=== PATIENT | male | born 1985 | race African-American/Black ===

== ENCOUNTER 2019-04-16 19:16 | Emergency (ER) | payer OTHER ==
[2019-04-16] MEDS ORDERED: NORMAL SALINE 1000 ML 1,000 ML IV ONE (19:23)
[2019-04-16] MEDS ORDERED: DIPH/PERTUSS(ACELL)/TETANUS VAC/PF 0.5 ML SYR (>=10YO) IM ONE (19:28)
--- NOTE | 2019-04-16 19:32 | ER Document Report ---
ED General - General Stated Complaint: FALL, HEAD LACERATION Time Seen by Provider: 04/16/19 19:23 Primary Care Provider: URI GUZMAN MD [Primary Care Provider] - Follow up as needed TRAVEL OUTSIDE OF THE [place] IN LAST 30 DAYS: No - HPI Patient complains to provider of: Syncope Notes: Normally healthy 33-year-old male presents an episode of syncope at the gym while working out. Patient doing very strenuous cardio work-up. Films of getting lightheaded attempted to sit down to feel better I did not help him he ag again to walk to a couch at which time he members waking up on the floor. It was a witnessed syncopal event which struck his head on a table. Has a small laceration above his right eyebrow approximately 5 mm She denies chest pain, shortness of breath, nausea, vomiting, any other symptoms. Patient was found to be orthostatic by EMS. Given fluid resuscitation prehospital. For mildly improved. - Related Data Allergies/Adverse Reactions: No Known Allergies Allergy (Verified 08/28/16 00:14) Past Medical History - Social History Smoking Status: Unknown if Ever Smoked Family History: Reviewed & Not Pertinent Past Surgical History: Reports: Hx Orthopedic Surgery - left hip screw Review of Systems - Review of Systems Notes: REVIEW OF SYSTEMS: CONSTITUTIONAL: -fevers, -chills EENT: -eye pain, -difficulty swallowing, -nasal congestion CARDIOVASCULAR: -chest pain, -syncope. RESPIRATORY: -cough, -SOB GASTROINTESTINAL: -abdominal pain, -nausea, -vomiting, -diarrhea GENITOURINARY: -dysuria, -hematuria MUSCULOSKELETAL: -back pain, -neck pain SKIN: -rash or skin lesions. HEMATOLOGIC: -easy bruising or bleeding. LYMPHATIC: -swollen, enlarged glands. NEUROLOGICAL: -altered mental status or loss of consciousness, -headache, - neurologic symptoms PSYCHIATRIC: -anxiety, -depression. ALL OTHER SYSTEMS REVIEWED AND NEGATIVE. Physical Exam - Vital signs Vitals: Temp 98.8 F 04/16/19 19:30 - Notes Notes: PHYSICAL EXAMINATION: GENERAL: Well-appearing, well-nourished and in no acute distress. HEAD: Atraumatic, normocephalic. EYES: Pupils equal round and reactive to light, extraocular movements intact, sclera anicteric, conjunctiva are normal. ENT: nares patent, oropharynx clear without exudates. Moist mucous membranes. NECK: Normal range of motion, supple without lymphadenopathy LUNGS: Breath sounds clear to auscultation bilaterally and equal. No wheezes rales or rhonchi. HEART: Regular rate and rhythm without murmurs ABDOMEN: Soft, nontender, normoactive bowel sounds. No guarding, no rebound. No masses appreciated. EXTREMITIES: Normal range of motion, no pitting or edema. No cyanosis. NEUROLOGICAL: Cranial nerves grossly intact. Normal speech, normal gait. Normal sensory and motor exams. PSYCH: Normal mood, normal affect. SKIN: Warm, Dry, normal turgor, no rashes or lesions noted. Course - Re-evaluation Re-evalutation: 04/16/19 19:31 Well-appearing 33-year-old male presents here no complaints, no history of previous syncope. Patient has never had exertional in the past. 04/16/19 20:39 Well-appearing patient no acute distress presents with episode of syncope at the gym. Given fluid resuscitation in the emergency department feeling markedly improved. Patient no longer orthostatic. Patient no signs of anemia, negative troponin remainder of his electrolytes are all within normal limits. Patient has laceration closed successfully by myself. We will follow-up PCP given strict return precautions anything changes. - Vital Signs Vital signs: Temp Pulse Resp BP Pulse Ox 98.8 F 04/16/19 19:30 - Laboratory Result Diagrams: 04/16/19 19:48 04/16/19 19:48 Laboratory results interpreted by me: 04/16/19 04/16/19 19:48 19:48 WBC 13.2 H RDW 14.4 H Absolute Neutrophils 8.5 H Carbon Dioxide 19 L BUN 21 H - EKG Interpretation by Nd EKG shows normal: Sinus rhythm Rate: Normal Rhythm: NSR Additional EKG results interpreted by nv: 04/16/19 19:40 Normal sinus rhythm, 85 bpm, no ST elevations or depressions, no pathologic T wave inversions, no unusual Procedures - Laceration/Wound Repair Right Face Time completed: 08:38 Wound length (cm): 0.5 Wound's Depth, Shape: Superficial - The laceration over right eyebrow. Wound explored: Clean Wound Repaired With: Dermabond Discharge - Discharge Clinical Impression: Laceration Syncope Qualifiers: Syncope type: vasovagal syncope Qualified Code(s): R55 - Syncope and collapse Condition: Stable Disposition: HOME, SELF-CARE Instructions: Laceration Care ([facility]) Additional Instructions: Follow-up with your PCP Referrals: URI GUZMAN MD [Primary Care Provider] - Follow up as needed
[2019-04-16 20:10] LABS: ABSOLUTE EOSINOPHILS # (AUTO) 0.1 10^3/uL (0.0-0.6); ABSOLUTE LYMPHOCYTES (AUTO) 3.4 10^3/uL (0.5-4.7); ABSOLUTE MONOCYTES (AUTO) 1.1 10^3/uL (0.1-1.4); ABSOLUTE NEUT (AUTO) 8.5 10^3/uL (1.7-8.2); BASOPHILS % (AUTO) 0.4 % (0-2); HEMATOCRIT 44.6 % (37.9-51.0); LYMPHOCYTES % (AUTO) 25.9 % (13-45); MEAN CORPUSCULAR HEMOGLOBIN 27.7 pg (27.0-33.4); MEAN CORPUSCULAR HGB CONC 33.7 g/dL (32.0-36.0); MEAN CORPUSCULAR VOLUME 82 fl (80-97); MONOCYTES % (AUTO) 8.3 % (3-13); PLATELET COUNT 267 10^3/uL (150-450); RED BLOOD COUNT 5.42 10^6/uL (4.35-5.55); RED CELL DISTRIBUTION WIDTH 14.4 % (11.5-14.0); SEGMENTED NEUTROPHILS % (AUTO) 64.4 % (42-78); TOTAL CELLS COUNTED % (AUTO) 100 %; WHITE BLOOD COUNT 13.2 10^3/uL (4.0-10.5)
--- NOTE | 2019-04-16 20:15 | RADIOLOGY REPORT (SQ) ---
XR CHEST 2 VIEWS EXAM DATE: 04/16/2019 7:23 PM CDT HISTORY: SOB. COMPARISON: None. FINDINGS: The heart size is within normal limits. No consolidation, pleural effusion, or pneumothorax is seen. The bony thorax is intact. IMPRESSION: No evidence of acute cardiopulmonary disease.
[2019-04-16 20:18] LABS: ANION GAP 12 (5-19); BLOOD UREA NITROGEN 21 mg/dL (7-20); CALCIUM 9.3 mg/dL (8.4-10.2); CARBON DIOXIDE 19 mmol/L (22-30); CHLORIDE 107 mmol/L (98-107); GLUCOSE 88 mg/dL (75-110)
[2019-04-16 21:12] VITALS: BP 138/80
--- NOTE | 2019-04-17 07:40 | EKG REPORT ---
SEVERITY:- BORDERLINE ECG - SINUS RHYTHM NONSPECIFIC INFERIOR ST-T CHANGES : Confirmed by: Mirza Good MD 17-Apr-2019 07:39:40
== END 2019-04-16 21:20 | disposition home or self-care (01) ==
LOC: ER 19:16
DX: S01.81XA Laceration without foreign body of other part of head, initial encounter (principal); W19.XXXA Unspecified fall, initial encounter; W22.03XA Walked into furniture, initial encounter; Y93.A9 Activity, other involving cardiorespiratory exercise; Y92.39 Other specified sports and athletic area as the place of occurrence of the external cause; R55 Syncope and collapse
CPT/HCPCS: 93005; 99284; 96360; 90471; 36415; 85025; 80048; 84484; 71046; 90715; 93010; 12011; J7030

== ENCOUNTER 2019-11-25 03:06 | Emergency (ER) | payer OTHER ==
[2019-11-25] MEDS ORDERED: ONDANSETRON 4 MG TAB.RAPDIS PO ONE (03:34)
--- NOTE | 2019-11-25 03:36 | ER Document Report ---
ED General - General Chief Complaint: Lower Abdominal Pain Stated Complaint: ABDOMINAL PAIN Time Seen by Provider: 11/25/19 03:28 Primary Care Provider: URI GUZMAN MD [Primary Care Provider] - Follow up as needed TRAVEL OUTSIDE OF THE [place] IN LAST 30 DAYS: No - HPI Notes: Patient is a 34-year-old male with history of diverticulosis and diverticulitis who presents complaining of mid lower abdominal pain that began over the past 24 hours. Patient states that the pain does not radiate and is constant. He has noticed some increased urinary frequency and voiding small amounts recently. Patient states that he has been somewhat on the constipated side starting last week, but has been having regular bowel movements with the aid of a stool softener. Patient states that his stool is fibrous. He does have some soreness on occasion near his rectum with bowel movements, but nothing right now. He has not noticed any blood in his urine or stool. Denies drug allergies. He does have some nausea without vomiting. Denies any headache, fever, neck pain, URI, sore throat, chest pain, palpitations, syncope, cough, shortness of breath, wheeze, dyspnea, vomiting/diarrhea, urinary retention, dysuria, hematuria, back pain, flank pain, loss of control of bowel or bladder, numbness/tingling, saddle anesthesia, muscle paralysis/weakness, or rash. - Related Data Allergies/Adverse Reactions: No Known Allergies Allergy (Verified 08/28/16 00:14) Past Medical History - Social History Smoking Status: Never Smoker Family History: Reviewed & Not Pertinent Patient has suicidal ideation: No Patient has homicidal ideation: No Renal/ Medical History: Denies: Hx Peritoneal Dialysis Past Surgical History: Reports: Hx Orthopedic Surgery - left hip screw Review of Systems - Review of Systems -: Yes All other systems reviewed and negative Physical Exam - Vital signs Vitals: Temp Pulse Resp BP Pulse Ox 98.6 F 85 20 133/91 H 97 11/25/19 03:10 11/25/19 03:10 11/25/19 03:10 11/25/19 03:10 11/25/19 03:10 - Notes Notes: PHYSICAL EXAMINATION: GENERAL: Well-appearing, well-nourished and in no acute distress. HEAD: Atraumatic, normocephalic. EYES: Pupils equal round and reactive to light, extraocular movements intact, sclera anicteric, conjunctiva are normal. ENT: Nares patent and without discharge. oropharynx clear without exudates. No tonsilar hypertrophy or erythema. Moist mucous membranes. NECK: Normal range of motion, supple without lymphadenopathy LUNGS: Breath sounds clear to auscultation bilaterally and equal. No wheezes rales or rhonchi. HEART: Regular rate and rhythm without murmurs, rubs, gallops. ABDOMEN: Soft, nondistended abdomen. No guarding, no rebound. Normal bowel sounds present. No CVA tenderness bilaterally. + tenderness lower mid abd. No tenderness at [place]. Mcnally neg. Musculoskeletal: FROM to passive/active. Strength 5+/5. Extremities: No cyanosis, clubbing, or edema b/l. Peripheral pulses 2+. Capillary refill less than 3 seconds. NEUROLOGICAL: Normal speech, normal gait. PSYCH: Normal mood, normal affect. SKIN: Warm, Dry, normal turgor, no rashes or lesions noted. Course - Re-evaluation Re-evalutation: 11/25/19 04:39 Patient is an afebrile, well-hydrated, 34-year-old male who presents with diverticulitis. Vitals are acceptable without significant tachycardia, tachypnea, or hypoxia. PE is otherwise unremarkable. Patient is nontoxic- appearing and is tolerating p.o. without difficulty. See labs and imaging. No further work-up warranted. Low suspicion/risk for acute appendicitis, bowel obstruction, acute cholecystitis, perforated diverticulitis, incarcerated hernia, pancreatitis, perforated ulcer, peritonitis, sepsis, testicular torsion, or other systemic emergent condition at this time. Patient is aware that his condition can change from initial presentation and he needs to monitor symptoms closely and seek medical attention if any acute changes. I will send him home with a prescription for Augmentin. Conservative measures otherwise for symptoms. Recheck with PCM in 2-3 days. 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 Return to the ED with any worsening/concerning symptoms otherwise as reviewed in discharge. Patient is in agreement. - Vital Signs Vital signs: Temp Pulse Resp BP Pulse Ox 98.6 F 85 20 133/91 H 97 11/25/19 03:10 11/25/19 03:10 11/25/19 03:10 11/25/19 03:10 03/16/20 03:10 - Laboratory Result Diagrams: 11/25/19 03:38 11/25/19 03:38 Laboratory results interpreted by me: 11/25/19 11/25/19 11/25/19 03:38 03:38 03:58 WBC 14.4 H RBC 5.92 H RDW 14.4 H Absolute Neuts (auto) 9.2 H Lipase 391.4 H Urine Blood MODERATE H Discharge - Discharge Clinical Impression: Diverticulitis of intestine without perforation or abscess without bleeding Qualifiers: Diverticulitis site: large intestine Qualified Code(s): K57.32 - Diverticulitis of large intestine without perforation or abscess without bleeding Condition: Stable Disposition: HOME, SELF-CARE Instructions: Diverticulitis ([facility]) Additional Instructions: Maintain adequate fluid and food intake Increase fiber/water in diet Zofran as needed tylenol if needed Monitor for any worsening symptoms Make sure you are staying hydrated enough to urinate and have normal BM's Recheck with your PCM in 2-3 days Consider consult with Gastroenterology for ongoing/worsening symptoms Return to the ED with any worsening symptoms and/or development of fever, headache, chest pain, palpitations, syncope, shortness of breath, trouble breathing, abdominal pain, n/v/d, blood in stool/urine, weakness, or other worsening symptoms that are concerning to you. Prescriptions: Amoxicillin/Potassium Clav [Augmentin 875-125 Tablet] 1 tab PO TID #30 tab Forms: Elevated Blood Pressure, Return to Work Referrals: URI GUZMAN MD [Primary Care Provider] - Follow up as needed ISABELLA OLIVAS MD [ACTIVE STAFF] - Follow up as needed MAYELIN FELDER MD [ACTIVE STAFF] - Follow up as needed
[2019-11-25 03:51] LABS: ABSOLUTE EOSINOPHILS # (AUTO) 0.2 10^3/uL (0.0-0.6); ABSOLUTE LYMPHOCYTES (AUTO) 3.6 10^3/uL (0.5-4.7); ABSOLUTE MONOCYTES (AUTO) 1.3 10^3/uL (0.1-1.4); ABSOLUTE NEUT (AUTO) 9.2 10^3/uL (1.7-8.2); BASOPHILS % (AUTO) 0.2 % (0-2); EOSINOPHILS % (AUTO) 1.7 % (0-6); HEMATOCRIT 49.8 % (37.9-51.0); HEMOGLOBIN 16.4 g/dL (13.5-17.0); LYMPHOCYTES % (AUTO) 25.4 % (13-45); MEAN CORPUSCULAR HEMOGLOBIN 27.7 pg (27.0-33.4); MEAN CORPUSCULAR VOLUME 84 fl (80-97); MONOCYTES % (AUTO) 8.9 % (3-13); PLATELET COUNT 247 10^3/uL (150-450); RED BLOOD COUNT 5.92 10^6/uL (4.35-5.55); RED CELL DISTRIBUTION WIDTH 14.4 % (11.5-14.0); SEGMENTED NEUTROPHILS % (AUTO) 63.8 % (42-78); TOTAL CELLS COUNTED % (AUTO) 100 %; WHITE BLOOD COUNT 14.4 10^3/uL (4.0-10.5)
[2019-11-25 04:08] LABS: ALBUMIN 4.6 g/dL (3.5-5.0); ALKALINE PHOSPHATASE 70 U/L (38-126); ANION GAP 10 (5-19); ASPARTATE AMINO TRANSFERASE 25 U/L (17-59); BILIRUBIN,DIRECT 0.2 mg/dL (0.0-0.4); BILIRUBIN,TOTAL 0.5 mg/dL (0.2-1.3); BLOOD UREA NITROGEN 12 mg/dL (7-20); CALCIUM 9.6 mg/dL (8.4-10.2); CARBON DIOXIDE 27 mmol/L (22-30); CHLORIDE 101 mmol/L (98-107); GLUCOSE 104 mg/dL (75-110); POTASSIUM 4.4 mmol/L (3.6-5.0)
[2019-11-25 04:18] LABS: APPEARANCE,URINE CLEAR; BILIRUBIN,URINE NEGATIVE (NEGATIVE); COLOR,URINE YELLOW; GLUCOSE, URINE NEGATIVE (NEGATIVE); KETONES,URINE NEGATIVE (NEGATIVE); PROTEIN,URINE NEGATIVE (NEGATIVE); URINE SPECIFIC GRAVITY 1.016; UROBILINOGEN,URINE NEGATIVE mg/dL (<2.0)
--- NOTE | 2019-11-25 04:33 | RADIOLOGY REPORT (SQ) ---
CLINICAL HISTORY: lower abdominal pain, h/o diverticulitis COMPARISON: 04/07/2014. TECHNIQUE: CT ABDOMEN PELVIS WITH IV CONTRAST on 11/25/2019 3:33 AM CDT This exam was performed according to our departmental dose-optimization program, which includes automated exposure control, adjustment of the mA and/or kV according to patient size and/or use of iterative reconstruction technique. FINDINGS: Lower lungs are clear. Abdomen: The liver is normal in appearance. There is no biliary dilatation. Gallbladder is normal in appearance. The pancreas and spleen are normal in appearance. The adrenal glands and kidneys are unremarkable. Abdominal aorta is normal in course and caliber without aneurysm. There is no free air. There is no retroperitoneal adenopathy. Pelvis: There is severe nearly diffuse colonic diverticulosis. There is thickening of the midsigmoid colon with surrounding inflammation. Urinary bladder is unremarkable. There is no free fluid. Appendix is normal. Skeleton: There are no acute osseous findings. No suspicious bony lesions. IMPRESSION: Mid sigmoid colonic acute diverticulitis.
[2019-11-25] MEDS ORDERED: AMOXICILLIN TR/POT CLAVULANATE 875-125 MG TAB PO ONE (04:42)
[2019-11-25] MEDS ORDERED: HYDROCODONE/ACETAMINOPHEN 5-325 MG (6 TAB/ER DISP) PO PRN (04:44)
[2019-11-25 05:02] VITALS: BP 125/85
== END 2019-11-25 05:01 | disposition home or self-care (01) ==
LOC: ER 03:06
DX: K57.32 Diverticulitis of large intestine without perforation or abscess without bleeding (principal); R10.30 Lower abdominal pain, unspecified; R35.0 Frequency of micturition; R33.9 Retention of urine, unspecified; K62.89 Other specified diseases of anus and rectum; R11.0 Nausea
CPT/HCPCS: 99284; 36415; 83690; 85025; 80053; 81001; 74177; J3490

== ENCOUNTER 2020-07-02 10:35 | Emergency (ER) | payer OTHER ==
--- NOTE | 2020-07-02 10:57 | ER Document Report ---
ED Medical Screen (RME) - General Chief Complaint: Abdominal Pain Stated Complaint: ABDOMINAL PAIN Time Seen by Provider: 07/02/20 10:40 Primary Care Provider: URI GUZMAN MD [Primary Care Provider] - Follow up as needed Mode of Arrival: Ambulatory Information source: Patient Notes: 34-year-old male patient with history of diverticulitis presenting to the [facility] department chief complaint of right lower quadrant abdominal pain. Patient reports pain started approximately 4 days ago. He states it has been persistent since it started and has gradually gotten worse. He states overnight it was very severe and now feels slightly better. He denies any fevers, chills, nausea, vomiting or diarrhea. He reports the pain is much worse with movement. He denies any history of any abdominal surgeries. No acute distress noted. Mild tenderness noted in the right lower quadrant, no obvious rebound tenderness although exam is limited due to seated position in triage. Patient instructed to be n.p.o. until all labs are resulted and disposition is made. I have greeted and performed a rapid initial assessment of this patient. A comprehensive ED assessment and evaluation of the patient, analysis of test results and completion of the medical decision making process will be conducted by additional ED providers. I have specifically instructed the patient or family members with the patient to immediately return to any nursing staff should anything change in the patient's condition or with their chief complaint. TRAVEL OUTSIDE OF THE [place] IN LAST 30 DAYS: No - Related Data Allergies/Adverse Reactions: No Known Allergies Allergy (Verified 07/02/20 10:50) Past Medical History - Social History Chew tobacco use (# tins/day): No Drug Abuse: None Renal/ Medical History: Denies: Hx Peritoneal Dialysis Past Surgical History: Reports: Hx Orthopedic Surgery - left hip screw Physical Exam - Vital signs Vitals: Temp Pulse Resp BP Pulse Ox 98.3 F 63 18 145/90 H 99 07/02/20 10:49 07/02/20 10:49 07/02/20 10:49 07/02/20 10:49 07/02/20 10:49 Course - Vital Signs Vital signs: Temp Pulse Resp BP Pulse Ox 98.3 F 63 18 145/90 H 99 07/02/20 10:49 07/02/20 10:49 07/02/20 10:49 07/02/20 10:49 07/02/20 10:49 Doctor's Discharge - Discharge Referrals: URI GUZMAN MD [Primary Care Provider] - Follow up as needed
[2020-07-02 11:30] LABS: ABSOLUTE EOSINOPHILS # (AUTO) 0.2 10^3/uL (0.0-0.6); ABSOLUTE LYMPHOCYTES (AUTO) 3.3 10^3/uL (0.5-4.7); ABSOLUTE MONOCYTES (AUTO) 0.9 10^3/uL (0.1-1.4); ABSOLUTE NEUT (AUTO) 5.5 10^3/uL (1.7-8.2); APPEARANCE,URINE CLEAR; BASOPHILS % (AUTO) 0.5 % (0-2); BILIRUBIN,URINE NEGATIVE (NEGATIVE); COLOR,URINE YELLOW; EOSINOPHILS % (AUTO) 1.6 % (0-6); GLUCOSE, URINE NEGATIVE (NEGATIVE); HEMATOCRIT 49.1 % (37.9-51.0); HEMOGLOBIN 16.6 g/dL (13.5-17.0); KETONES,URINE NEGATIVE (NEGATIVE); LEUKOCYTE ESTERASE,URINE NEGATIVE (NEGATIVE); LYMPHOCYTES % (AUTO) 33.5 % (13-45); MEAN CORPUSCULAR HEMOGLOBIN 27.2 pg (27.0-33.4); MEAN CORPUSCULAR HGB CONC 33.9 g/dL (32.0-36.0); MEAN CORPUSCULAR VOLUME 80 fl (80-97); MONOCYTES % (AUTO) 9.1 % (3-13); NITRITE,URINE NEGATIVE (NEGATIVE); PLATELET COUNT 271 10^3/uL (150-450); PROTEIN,URINE NEGATIVE (NEGATIVE); RED BLOOD COUNT 6.11 10^6/uL (4.35-5.55); RED CELL DISTRIBUTION WIDTH 15.3 % (11.5-14.0); SEGMENTED NEUTROPHILS % (AUTO) 55.3 % (42-78); TOTAL CELLS COUNTED % (AUTO) 100 %; URINE SPECIFIC GRAVITY 1.025; UROBILINOGEN,URINE NEGATIVE mg/dL (<2.0); WHITE BLOOD COUNT 9.9 10^3/uL (4.0-10.5)
[2020-07-02 11:46] LABS: ALBUMIN 4.7 g/dL (3.5-5.0); ALKALINE PHOSPHATASE 67 U/L (38-126); ANION GAP 10 (5-19); ASPARTATE AMINO TRANSFERASE 27 U/L (17-59); BILIRUBIN,DIRECT 0.3 mg/dL (0.0-0.4); BILIRUBIN,TOTAL 0.6 mg/dL (0.2-1.3); BLOOD UREA NITROGEN 15 mg/dL (7-20); CALCIUM 9.7 mg/dL (8.4-10.2); CARBON DIOXIDE 24 mmol/L (22-30); CHLORIDE 103 mmol/L (98-107); GLUCOSE 93 mg/dL (75-110); POTASSIUM 4.5 mmol/L (3.6-5.0); TOTAL PROTEIN 7.9 g/dL (6.3-8.2)
[2020-07-02] MEDS ORDERED: KETOROLAC TROMETHAMINE INJ/PF 30 MG/1 ML SDV IV ONE (12:00)
--- NOTE | 2020-07-02 12:00 | ER Document Report ---
ED GI/ - General Chief Complaint: Abdominal Pain Stated Complaint: ABDOMINAL PAIN Time Seen by Provider: 07/02/20 10:40 Primary Care Provider: URI GUZMAN MD [Primary Care Provider] - Follow up as needed Mode of Arrival: Ambulatory Information source: Patient Notes: 34-year-old male past medical history significant for diverticulitis presents to the emergency room complaining of generalized sharp stabbing abdominal pain for the past 2 days. He denies any nausea, vomiting, no fevers, no urinary symptoms. No diarrhea. States he traveled over the past week and has not been eating his normal diet. Thinks he may have aggravated his history of diverti culitis. He has not taken any medications for his symptoms. He drove himself to the emergency room. He denies any previous abdominal surgeries. He denies any urinary symptoms. TRAVEL OUTSIDE OF THE [place] IN LAST 30 DAYS: No - Related Data Allergies/Adverse Reactions: No Known Allergies Allergy (Verified 07/02/20 10:50) Past Medical History - General Information source: Patient - Social History Smoking Status: Never Smoker Chew tobacco use (# tins/day): No Frequency of alcohol use: Rare Drug Abuse: None Family History: Reviewed & Not Pertinent Patient has homicidal ideation: No Renal/ Medical History: Denies: Hx Peritoneal Dialysis GI Medical History: Reports: Hx Diverticulitis Past Surgical History: Reports: Hx Orthopedic Surgery - left hip screw Review of Systems - Review of Systems Constitutional: No symptoms reported EENT: No symptoms reported Cardiovascular: No symptoms reported Respiratory: No symptoms reported Gastrointestinal: Abdominal pain. denies: Diarrhea, Nausea, Vomiting, Constipation Musculoskeletal: No symptoms reported Skin: No symptoms reported Neurological/Psychological: No symptoms reported -: Yes All other systems reviewed and negative Physical Exam - Vital signs Vitals: Temp Pulse Resp BP Pulse Ox 98.3 F 63 18 145/90 H 99 07/02/20 10:49 07/02/20 10:49 07/02/20 10:49 07/02/20 10:49 07/02/20 10:49 - Notes Notes: GENERAL: Mild acute distress, non-toxic appearance. HEAD: Normal with no signs of head trauma. EYES: PERRLA, EOMI, conjunctiva normal, no discharge. EARS: Hearing grossly intact. NOSE: Normal. THROAT: Oropharynx is normal. NECK: Normal range of motion, no tenderness, supple, no lymphadenopathy, No adenopathy, no JVD. CHEST: Clear breath sounds bilaterally. No wheezes, rales, or rhonchi. CARDIAC: Regular rate and rhythm. S1 and S2, without murmurs, gallops, or rubs. VASCULAR: No Edema. Peripheral pulses normal and equal in all extremities. ABDOMEN: Normal and soft with mild generalized tenderness on palpation, no masses or pulsatile masses. No organomegaly. Positive bowel sounds x4. No CVA tenderness noted bilaterally. GASTROINTESTINAL: Bowel sounds normal LYMPATHTIC: No lymphadenopathy noted. MUSCULOSKELETAL: Good range of motion of all major joints. Extremities without clubbing, cyanosis or edema. NEUROLOGICAL: Alert and oriented x 3. No focal sensory or strength deficits. Speech normal. Follows commands appropriately. PSYCHIATRIC: Normal Affect, judgement and mood. SKIN: Normal appearance with no rashes or lesions. Course - Re-evaluation Re-evalutation: 07/02/20 11:59 Reviewed lab results with patient. Patient states he has a history of diverticulitis which is what his concern was with coming to the ER. Denies eating any recent nuts or seeds however states he was traveling over the weekend and was eating out frequently. Will get CT abdomen pelvis with IV contrast and reevaluate. 07/02/20 15:14 Patient is resting comfortably he is pain-free on exam. All test results were reviewed with the patient. Discussed CT findings of diverticulosis not diverticulitis. He was counseled on diet modifications. Outpatient follow-up with his primary care physician if not improving in 2 to 3 days. Patient was given strict return to the emergency room guidelines. Return for any new or worsening symptoms. All questions were answered. Patient verbalized understanding and agrees with plan of care. 07/02/20 15:44 - Vital Signs Vital signs: Temp Pulse Resp BP Pulse Ox 98.3 F 67 18 140/88 H 100 07/02/20 10:49 07/02/20 15:40 07/02/20 15:40 07/02/20 15:40 07/02/20 15:40 - Laboratory Result Diagrams: 07/02/20 11:14 07/02/20 11:14 Laboratory results interpreted by me: 07/02/20 07/02/20 11:14 11:14 RBC 6.11 H RDW 15.3 H Urine Blood MODERATE H - Diagnostic Test Radiology reviewed: Reports reviewed Discharge - Discharge Clinical Impression: Diverticulosis Condition: Stable Disposition: HOME, SELF-CARE Instructions: Abdominal Pain ([facility]) Additional Instructions: Your testing is consistent with diverticulosis. Diet modifications as discussed. Follow-up with your primary care physician if not improving in 2 to 3 days. Return to the emergency room for any new or worsening symptoms. Forms: Return to Work Referrals: URI GUZMAN MD [Primary Care Provider] - Follow up as needed
--- NOTE | 2020-07-02 14:49 | RADIOLOGY REPORT (SQ) ---
EXAM DESCRIPTION: CT ABD/PELVIS WITH IV ONLY IMAGES COMPLETED DATE/TIME: 07/02/2020 2:15 pm REASON FOR STUDY: abdominal pain COMPARISON: None. TECHNIQUE: CT scan of the abdomen and pelvis performed using helical scanning technique with dynamic intravenous contrast injection. No oral contrast. Images reviewed with lung, soft tissue, and bone windows. Reconstructed coronal and sagittal MPR images reviewed. Delayed images for evaluation of the urinary system also acquired. All images stored on PACS. All CT scanners at this facility use dose modulation, iterative reconstruction, and/or weight based d osing when appropriate to reduce radiation dose to as low as reasonably achievable (ALARA). [facility]: Dose Right [facility]: CareDose [facility]: Dose Right [facility]: Teradose 4D [facility]: Definiens CONTRAST TYPE AND DOSE: contrast/concentration: Isovue 350.00 mmol/ml; Total Contrast Delivered: 100 .0 ml; Total Saline Delivered: 71.0 ml RENAL FUNCTION: BUN 15 creatinine 0.84 RADIATION DOSE: CT Rad equipment meets quality standard of care and radiation dose reduction techniq ues were employed. CTDIvol: 17.4 - 20.4 mGy. DLP: 2202 mGy-cm.. LIMITATIONS: None. FINDINGS: LOWER CHEST: No significant findings. No nodules or infiltrates. LIVER: Normal size. No masses. No dilated ducts. SPLEEN: Normal size. No focal lesions. PANCREAS: No masses. No significant calcifications. No adjacent inflammation or peripancreatic fluid collections. Pancreatic duct not dilated. GALLBLADDER: No identified stones by CT criteria. No inflammatory changes to suggest cholecystitis. ADRENAL GLANDS: No significant masses or asymmetry. RIGHT KIDNEY AND URETER: No solid masses. No significant calcifications. No hydronephrosis or hyd roureter. LEFT KIDNEY AND URETER: No solid masses. No significant calcifications. No hydronephrosis or hydr oureter. AORTA AND VESSELS: No aneurysm. No dissection. Renal arteries, SMA, celiac without stenosis. RETROPERITONEUM: No retroperitoneal adenopathy, hemorrhage or masses. BOWEL AND PERITONEAL CAVITY: Diverticula are present throughout the colon. No acute inflammatory jonathan nges are seen at this time. No obvious bowel mass. APPENDIX: Normal. PELVIS: No mass. No free fluid. Normal bladder. ABDOMINAL WALL: No masses. No hernias. BONES: No significant or acute findings. OTHER: No other significant finding. IMPRESSION: The appendix is normal. There is extensive diverticulosis coli. No acute finding in th e abdomen or pelvis. TECHNICAL DOCUMENTATION: JOB ID: [id number] Quality ID # [id number]: Final reports with documentation of one or more dose reduction techniques (e.g., Au tomated exposure control, adjustment of the mA and/or kV according to patient size, use of iterative reconstruction technique) 2010 [employer]- All Rights Reserved Reading location - IP/workstation name: [email or web address]
[2020-07-02 15:41] VITALS: BP 140/88
== END 2020-07-02 15:40 | disposition home or self-care (01) ==
LOC: ER 10:35
DX: K57.30 Diverticulosis of large intestine without perforation or abscess without bleeding (principal); R10.84 Generalized abdominal pain; R10.817 Generalized abdominal tenderness; Z87.19 Personal history of other diseases of the digestive system
CPT/HCPCS: 99285; 96374; 36415; 83690; 85025; 80053; 81001; 74177; J1885

== ENCOUNTER 2020-07-11 22:07 | Inpatient (IN) | payer OTHER ==
[2020-07-11] MEDS ORDERED: RINGERS SOLUTION,LACTATED 1,000 ML IV ONE (22:28)
--- NOTE | 2020-07-11 22:33 | ER Document Report ---
ED Medical Screen (RME) - General Chief Complaint: Bloody Stools Stated Complaint: NAUSEA,VOMITING Time Seen by Provider: 07/11/20 22:26 Primary Care Provider: URI GUZMAN MD [Primary Care Provider] - Follow up as needed Mode of Arrival: Medic Information source: Patient Notes: 34-year-old male presented to ED for complaint of abdominal pain Dr. Puckett lc beltran since . He states that he called his doctor and talk to them yesterday they said they were going to set him up with a new doctor schedule him for CT some blood work and set him up with a pot builder. He states they were supposed to call him back but they have not called him back with this yet. He states that today he has had between 13 and 15 stools now they are more dark red stools instead of tarry stools. He states he has had dark diverticulitis multiple times the last time was in November of this year. He states that did not start him on antibiotics when he told him that he was having the low abdominal pain with tarry black stools and he has a history of multiple diverticulitis. According to EMS his blood pressure was 65 systolic when they picked him up they did start him on a liter of lactated Ringer's. He is still getting that bad. His blood pressure right now is 99/65. I have ordered type and screen blood work urine and stool and CT IV contrast of abdomen pelvis. I have greeted and performed a rapid initial assessment of this patient. A comprehensive ED assessment and evaluation of the patient, analysis of test results and completion of medical decision making process will be conducted by an additional ED providers. TRAVEL OUTSIDE OF THE [place] IN LAST 30 DAYS: No - Related Data Allergies/Adverse Reactions: No Known Allergies Allergy (Verified 07/02/20 10:50) Past Medical History Renal/ Medical History: Denies: Hx Peritoneal Dialysis GI Medical History: Reports: Hx Diverticulitis Past Surgical History: Reports: Hx Orthopedic Surgery - left hip screw Physical Exam - Vital signs Vitals: Temp 98.0 F 07/11/20 22:11 Course - Vital Signs Vital signs: Temp Pulse Resp BP Pulse Ox 98.0 F 07/11/20 22:11 Doctor's Discharge - Discharge Referrals: URI GUZMAN MD [Primary Care Provider] - Follow up as needed
[2020-07-11 22:46] LABS: ABSOLUTE EOSINOPHILS # (AUTO) 0.2 10^3/uL (0.0-0.6); ABSOLUTE LYMPHOCYTES (AUTO) 4.8 10^3/uL (0.5-4.7); ABSOLUTE MONOCYTES (AUTO) 0.8 10^3/uL (0.1-1.4); ABSOLUTE NEUT (AUTO) 4.9 10^3/uL (1.7-8.2); BASOPHILS % (AUTO) 0.2 % (0-2); EOSINOPHILS % (AUTO) 1.7 % (0-6); HEMATOCRIT 33.7 % (37.9-51.0); HEMOGLOBIN 11.4 g/dL (13.5-17.0); LYMPHOCYTES % (AUTO) 44.4 % (13-45); MEAN CORPUSCULAR HEMOGLOBIN 27.4 pg (27.0-33.4); MEAN CORPUSCULAR HGB CONC 33.8 g/dL (32.0-36.0); MEAN CORPUSCULAR VOLUME 81 fl (80-97); MONOCYTES % (AUTO) 7.9 % (3-13); PLATELET COUNT 249 10^3/uL (150-450); RED BLOOD COUNT 4.15 10^6/uL (4.35-5.55); RED CELL DISTRIBUTION WIDTH 14.5 % (11.5-14.0); SEGMENTED NEUTROPHILS % (AUTO) 45.8 % (42-78); TOTAL CELLS COUNTED % (AUTO) 100 %; WHITE BLOOD COUNT 10.7 10^3/uL (4.0-10.5)
[2020-07-11 22:53] LABS: INTERNATIONAL RATION (INR) 0.99; PROTHROMBIN TIME 13.3 SEC (11.4-15.4)
[2020-07-11 23:02] LABS: ALBUMIN 3.5 g/dL (3.5-5.0); ALKALINE PHOSPHATASE 47 U/L (38-126); ANION GAP 10 (5-19); ASPARTATE AMINO TRANSFERASE 19 U/L (17-59); BILIRUBIN,DIRECT 0.1 mg/dL (0.0-0.4); BILIRUBIN,TOTAL 0.2 mg/dL (0.2-1.3); BLOOD UREA NITROGEN 22 mg/dL (7-20); CALCIUM 8.8 mg/dL (8.4-10.2); CARBON DIOXIDE 23 mmol/L (22-30); CHLORIDE 107 mmol/L (98-107); GLUCOSE 113 mg/dL (75-110); POTASSIUM 3.9 mmol/L (3.6-5.0); TOTAL PROTEIN 5.9 g/dL (6.3-8.2)
--- NOTE | 2020-07-11 23:34 | ER Document Report ---
ED General - General Chief Complaint: Bloody Stools Stated Complaint: NAUSEA,VOMITING Time Seen by Provider: 07/11/20 22:26 Primary Care Provider: URI GUZMAN MD [NO LOCAL MD] - Follow up as needed Mode of Arrival: Medic TRAVEL OUTSIDE OF THE [place] IN LAST 30 DAYS: No - HPI Context: This is a 34-year-old male with a history of diverticulosis and diverticulitis per patient. Patient presents with a chief complaint of bloody stools and abdominal pain. Patient states that the abdominal pain is been present for approximately a week and a half. Patient states he is had some dark blood per rectum for the past 2 days. Patient describes the stools as dark red and diarrheal as opposed to being tarry. Patient states that he has noticed the pa in in his lower abdomen in the midline and it was initially on the right side for a few days but now has moved to the left side. Patient states that when he was using the toilet earlier tonight he passed more bloody diarrheal stool and had a moment where he blacked out. Patient states he did not fall and regain consciousness and was able to tell his spouse to get in touch with EMS as he walked from the upstairs bathroom downstairs. Patient states that just as he got downstairs he blacked out but denies any type of head trauma. Patient denies neck pain, chest pain back pain. Patient rates the for your pain: Take ibuprofen 600 mg and acetaminophen 1000 mg every 6 hours together as needed for pain. If this does not control your pain you may take 15 mg of oral morphine every 4 hours as needed. Please be very careful about using the oral morphine and only use this for severe pain. And is a 3 out of 5 and describes it as sharp. Patient states he has had approximately 15 stools over the past 2 days that have been dark red. Patient denies fever and chills. Per EMS, patient's initial blood pressure was 65 systolic and patient was given a liter of lactated Ringer's which brought his pressure up to 99/65. Patient states he had one episode of nausea and vomiting when the EMS crew was moving him onto the stretcher. Patient states vomitus contained food that he had had at approx imately 1900 hrs. Patient denies coffee-ground emesis. Patient denies using any type of anticoagulants, aspirin or NSAID. Patient denies prior abdominal surgery. Associated symptoms: Other - See HPI Exacerbated by: Other - See HPI Relieved by: Other - See HPI Similar symptoms previously: Yes - Related Data Allergies/Adverse Reactions: No Known Allergies Allergy (Verified 07/02/20 10:50) Past Medical History - General Information source: Patient - Social History Smoking Status: Unknown if Ever Smoked Frequency of alcohol use: Rare Family History: Reviewed & Not Pertinent Patient has suicidal ideation: No Patient has homicidal ideation: No - Past Medical History Cardiac Medical History: Reports: Hx Hypercholesterolemia - no meds Endocrine Medical History: Reports: Hx Diabetes Mellitus Type 2 - per pt "pre- diabetic" Renal/ Medical History: Denies: Hx Peritoneal Dialysis GI Medical History: Reports: Hx Diverticulitis Past Surgical History: Reports: Hx Orthopedic Surgery - left hip screw Review of Systems - Review of Systems Constitutional: No symptoms reported EENT: No symptoms reported Cardiovascular: No symptoms reported Respiratory: No symptoms reported Gastrointestinal: Abdominal pain, Rectal bleeding Genitourinary: No symptoms reported Male Genitourinary: No symptoms reported Musculoskeletal: No symptoms reported Skin: No symptoms reported Hematologic/Lymphatic: No symptoms reported Neurological/Psychological: Lost consciousness -: Yes All other systems reviewed and negative Physical Exam - Vital signs Vitals: Resp Pulse Ox 14 100 07/11/20 22:08 07/11/20 22:08 - Notes Notes: CONSTITUTIONAL [Vital signs reviewed, Patient appears comfortable, Alert and oriented X 3, Normal stature.] HEAD [Atraumatic, Normocephalic.] EYES [Eyes are normal to inspection, No discharge from eyes, Extraocular muscles intact, Sclera are normal, Conjunctiva are normal.] ENT [Ears normal to inspection, Nose examination normal, Posterior pharynx normal, Mouth normal to inspection.] NECK [Normal ROM, No jugular venous distention, No meningeal signs, no carotid bruit.] RESPIRATORY CHEST [Chest is nontender, Breath sounds normal, No respiratory distress.] CARDIOVASCULAR [RRR, No murmurs, Normal S1 S2, No rub, No gallop.] ABDOMEN [Abdomen is nontender, No pulsatile masses, No other masses, Bowel sounds normal, No distension, No peritoneal signs, No hernias.] RECTAL Scant stool is present in the rectal vault sample obtained appears bright red and is Hemoccult positive. BACK [There is no CVA Tenderness, There is no tenderness to palpation, Normal inspection.] UPPER EXTREMITY [Inspection normal, No cyanosis, No clubbing, No edema, 2+ radial pulses.] LOWER EXTREMITY [Inspection normal, No cyanosis, No clubbing, No edema, No calf tenderness, 2+ femoral pulses.] NEURO [No focal motor deficits, No focal sensory deficits, Speech normal.] SKIN [Skin is warm, Skin is dry, Skin is normal color.] LYMPHATIC [No adenopathy in neck.] PSYCHIATRIC [Normal affect. ] Course - Re-evaluation Re-evalutation: 07/12/20 02:57 Results of ED MSE discussed with patient. All questions were answered. Recommendation for admission discussed with patient. Patient was agreeable with this. - Vital Signs Vital signs: Temp Pulse Resp BP Pulse Ox 98.4 F 15 102/66 100 07/12/20 02:46 07/12/20 02:41 07/12/20 02:41 07/12/20 02:41 - Laboratory Result Diagrams: 07/11/20 22:27 07/11/20 22:27 Laboratory results interpreted by me: 07/11/20 07/11/20 22:27 22:27 WBC 10.7 H RBC 4.15 L Hgb 11.4 L Hct 33.7 L RDW 14.5 H Absolute Lymphs (auto) 4.8 H BUN 22 H Glucose 113 H Total Protein 5.9 L - Diagnostic Test Radiology reviewed: Reports reviewed Discharge - Discharge Clinical Impression: Diverticulosis, Lower GI bleed Condition: Stable Disposition: ADMITTED INPATIENT Admitting Provider: Regis (Hospitalist) Unit Admitted: Medical Floor Referrals: URI GUZMAN MD [NO LOCAL MD] - Follow up as needed
[2020-07-12] MEDS: NORMAL SALINE 1000 ML 1,000 ML IV PRN ×3 (00:04→01:27)
--- NOTE | 2020-07-12 00:16 | RADIOLOGY REPORT (SQ) ---
EXAM DESCRIPTION: CT ABDOMEN PELVIS WITH IV CONTRAST COMPLETED DATE/TME: 07/11/2020 22:33 EXAM DESCRIPTION: CT ABDOMEN AND PELVIS WITH CONTRAST CLINICAL HISTORY: Left lower quadrant abdominal pain bloody stools COMPARISON: None Available. TECHNIQUE: CT of the abdomen and pelvis performed following IV administration of . FINDINGS: Lung Bases: The visualized lung bases are clear. Bones: No destructive bone lesions identified. Abdomen: Liver: The liver has normal size and density. No intrahepatic biliary dilatation. Gallbladder: No calcified gallstones. Spleen, Pancreas, and Adrenal Glands: The spleen, pancreas, and adrenal glands are unremarkable. Kidneys: No hydronephrosis or obstructing calculus. Vasculature: The aorta and IVC have normal caliber and position. The portal vein is patent. The proximal visceral and renal arteries are patent. Stomach: The stomach and duodenum have normal course. Other: No free intraperitoneal air. No free fluid or lymphadenopathy. Pelvis: Bladder: Urinary bladder is unremarkable. Bowel: No dilated loops of large or small bowel. Diverticulosis without evidence of acute diverticulitis. Appendix: Normal appendix. Pelvis: Prostate is not enlarged. IMPRESSION: 1. No acute inflammatory or obstructive process identified. 2. Diverticulosis without evidence of acute diverticulitis. This exam was performed according to our departmental dose-optimization program, which includes automated exposure control, adjustment of the mA and/or kV according to patient size and/or use of iterative reconstruction technique.
[2020-07-12 00:34] LABS: APPEARANCE,URINE CLEAR; BILIRUBIN,URINE NEGATIVE (NEGATIVE); COLOR,URINE YELLOW; GLUCOSE, URINE NEGATIVE (NEGATIVE); KETONES,URINE NEGATIVE (NEGATIVE); LEUKOCYTE ESTERASE,URINE NEGATIVE (NEGATIVE); NITRITE,URINE NEGATIVE (NEGATIVE); PROTEIN,URINE NEGATIVE (NEGATIVE); URINE SPECIFIC GRAVITY 1.044; UROBILINOGEN,URINE NEGATIVE mg/dL (<2.0)
[2020-07-12 01:08] LABS: ABSOLUTE LYMPHOCYTES (AUTO) 2.2 10^3/uL (0.5-4.7); ABSOLUTE MONOCYTES (AUTO) 0.7 10^3/uL (0.1-1.4); ABSOLUTE NEUT (AUTO) 9.2 10^3/uL (1.7-8.2); BASOPHILS % (AUTO) 0.2 % (0-2); EOSINOPHILS % (AUTO) 0.4 % (0-6); HEMATOCRIT 30.9 % (37.9-51.0); HEMOGLOBIN 10.4 g/dL (13.5-17.0); MEAN CORPUSCULAR HEMOGLOBIN 27.3 pg (27.0-33.4); MEAN CORPUSCULAR HGB CONC 33.7 g/dL (32.0-36.0); MEAN CORPUSCULAR VOLUME 81 fl (80-97); MONOCYTES % (AUTO) 5.6 % (3-13); PLATELET COUNT 211 10^3/uL (150-450); RED BLOOD COUNT 3.82 10^6/uL (4.35-5.55); RED CELL DISTRIBUTION WIDTH 14.8 % (11.5-14.0); SEGMENTED NEUTROPHILS % (AUTO) 75.8 % (42-78); WHITE BLOOD COUNT 12.1 10^3/uL (4.0-10.5)
[2020-07-12] MEDS ORDERED: ONDANSETRON HCL INJ/PF 4 MG/2 ML SDV IV PRN (03:21)
[2020-07-12] MEDS ORDERED: MAG HYDROX/AL HYDROX/SIMETH SUSP 30 ML UDCUP PO PRN (03:21)
[2020-07-12] MEDS ORDERED: LORAZEPAM INJ 2 MG/1 ML VIAL IV PRN (03:26)
[2020-07-12] MEDS ORDERED: GUAIFENESIN SYRP 200 MG/10 ML UDC PO PRN (03:26)
[2020-07-12] MEDS ORDERED: INSULIN REG, HUMAN 100 UNIT/ML 3 ML VIAL (PYX) SUBCUT PRN (03:26)
[2020-07-12] MEDS ORDERED: MORPHINE SULFATE 10 MG/ML INJ IV PRN (03:26)
[2020-07-12] MEDS ORDERED: MELATONIN 5 MG TABLET PO PRN (03:26)
[2020-07-12] MEDS ORDERED: ACETAMINOPHEN 325 MG TABLET PO PRN (03:26)
[2020-07-12] MEDS ORDERED: DEXTROSE 40% GEL 15 GM TUBE PO PRN ×2 (03:27)
[2020-07-12] MEDS ORDERED: DEXTROSE 50%-WATER 25 GM/50 ML DISP.SYRIN IV PRN ×2 (03:27)
[2020-07-12] MEDS ORDERED: GLUCAGON,HUMAN RECOMB 1 MG INJ IM PRN (03:27)
--- NOTE | 2020-07-12 04:54 | PDOC H&P ---
History of Present Illness Admission Date/PCP: 07/12/2020 03:01 GALINA WOLFE MD Patient complains of: Rectal bleeding History of Present Illness: BARBY NEWMAN is a 34 year old male who presented emergency room with a 2- day history of rectal bleeding. He admits developing moderate constant crampy lower abdominal pain 10 days ago which has gradually moved from the right side of his lower abdomen to the left side and has been accompanied by at least 15 diarrhea stools with dark red blood over the last 2 days. His abdominal pain is associated with 2 syncopal episodes which occurred just prior to coming to the emergency room. He denies other associated or accompanying signs and symptoms. He admits prior similar symptoms with diverticulitis in the past. He has not identified any aggravating or ameliorating factors for his rectal bleeding. Upon EMS arrival he was found to have a systolic blood pressure of 65 and he received IV fluids in route to the hospital. In the emergency room he was still noted to have a soft blood pressure which has been running in the 90s to 100s systolic and EMS noted one episode of nonbloody emesis during transport. CT of the abdomen pelvis reveals no acute inflammatory changes or evidence of obstruction. Diverticular disease was noted. Patient was subsequently admitted to the hospital for further evaluation and treatment. Past Medical History Cardiac Medical History: Reports: Hyperlipidema - no meds Denies: DVT, Hypertension, Pulmonary Embolism Pulmonary Medical History: Denies: Asthma, Chronic Obstructive Pulmonary Disease (COPD) EENT Medical History: Denies: Cataracts, Ears - Hearing aids Neurological Medical History: Denies: Multiple Sclerosis, Seizures Endocrine Medical History: Reports: Diabetes Mellitus Type 2 - "pre-diabetic" Denies: Diabetes Mellitus Type 1, Hyperthyroidism, Hypothyroidism Renal/ Medical History: Denies: Chronic Kidney Disease, Nephrolithiasis Malignancy Medical History: Reports: None GI Medical History: Reports: Diverticulitis Denies: Cirrhosis, Crohn's Disease, Gastroesophageal Reflux Disease, Hepatitis, Peptic Ulcer Disease, Ulcerative Colitis Musculoskeltal Medical History: Denies: Arthritis, Gout Skin Medical History: Denies: Eczema, Psoriasis Psychiatric Medical History: Denies: Alcohol Dependency, Substance Abuse, Tobacco Dependency Traumatic Medical History: Reports: None Hematology: Denies: Anemia, Bleeding Tendencies Infectious Medical History: Reports: None Past Surgical History Past Surgical History: Reports: Orthopedic Surgery - left hip screw Social History Information Source: Patient Lives with: Family, Spouse/Significant other Smoking Status: Never Smoker Electronic Cigarette use?: No Frequency of Alcohol Use: None Hx Recreational Drug Use: No Drugs: None Hx Prescription Drug Abuse: No - Advance Directive Resuscitation Status: Full Code Surrogate healthcare decision maker:: Antonella Newman Family History Family History: DM, Hypertension Parental Family History Reviewed: Yes Children Family History Reviewed: No Sibling(s) Family History Reviewed.: Yes Medication/Allergy Home Medications: Cefdinir [Omnicef 300 mg Capsule] 1 cap PO BID #14 capsule 04/09/14 L.acidoph/L.bulg/B.bif/S.therm [Bacid Caplet] 1 tab PO BID #28 tablet 04/09/14 Metronidazole [Flagyl 250 mg Tablet] 250 mg PO Q8 #21 tablet 04/09/14 Ciprofloxacin HCl [Cipro 500 mg Tablet] 500 mg PO BID #14 tablet 08/28/16 Metronidazole [Flagyl 500 mg Tablet] 500 mg PO TID #21 tablet 08/28/16 Promethazine HCl [Phenergan 25 mg Tablet] 1 tab PO Q6H PRN #15 tablet 08/28/16 Amoxicillin/Potassium Clav [Augmentin 875-125 Tablet] 1 tab PO TID #30 tab 11/25/19 Allergies/Adverse Reactions: No Known Allergies Allergy (Verified 07/02/20 10:50) Review of Systems Constitutional: ABSENT: chills, fever(s) Eyes: ABSENT: visual disturbances, other - Eye pain Ears: ABSENT: hearing changes, other - Ear pain Nose, Mouth, and Throat: ABSENT: headache(s), sore throat Cardiovascular: ABSENT: chest pain, palpitations Respiratory: ABSENT: cough, dyspnea Gastrointestinal: PRESENT: as per HPI, abdominal pain, diarrhea, hematochezia, vomiting. ABSENT: constipation, hematemesis, melena, nausea Genitourinary: ABSENT: dysuria, hematuria Musculoskeletal: ABSENT: back pain, joint swelling Integumentary: ABSENT: pruritus, rash Neurological: PRESENT: as per HPI, syncope. ABSENT: confusion, convulsions, focal weakness, memory loss Psychiatric: ABSENT: anxiety, depression Endocrine: ABSENT: cold intolerance, heat intolerance Hematologic/Lymphatic: ABSENT: easy bleeding, easy bruising Allergic/Immunologic: ABSENT: seasonal rhinorrhea Physical Exam Vital Signs: Temp Pulse Resp BP Pulse Ox 98.4 F 15 102/66 100 07/12/20 02:46 07/12/20 02:41 07/12/20 02:41 07/12/20 02:41 Intake & Output 07/10/20 07/11/20 07/12/20 23:59 23:59 22:59 Intake Total 1000 1999 Balance 1000 1999 Weight 105.1 kg General appearance: PRESENT: no acute distress, cooperative Head exam: PRESENT: atraumatic, normocephalic Eye exam: PRESENT: conjunctiva pink. ABSENT: conjunctival injection, scleral icterus Ear exam: PRESENT: normal external ear exam. ABSENT: bleeding, drainage Mouth exam: PRESENT: dry mucosa, neck supple Neck exam: ABSENT: thyromegaly, tracheal deviation Respiratory exam: PRESENT: clear to auscultation dorita, symmetrical, unlabored Cardiovascular exam: PRESENT: RRR. ABSENT: clicks, gallop, rubs Pulses: PRESENT: normal radial pulses, normal dorsalis pedis pul Vascular exam: PRESENT: normal capillary refill. ABSENT: pallor GI/Abdominal exam: PRESENT: normal bowel sounds, soft, tenderness - Mild left lower quadrant tenderness to palpation Rectal exam: PRESENT: deferred Extremities exam: ABSENT: joint swelling, pedal edema Musculoskeletal exam: ABSENT: deformity, dislocation Neurological exam: PRESENT: alert, oriented to person, oriented to place, oriented to time, oriented to situation, CN II-XII grossly intact. ABSENT: motor sensory deficit Psychiatric exam: PRESENT: appropriate affect, normal mood Skin exam: PRESENT: dry, intact, warm. ABSENT: jaundice, rash, urticaria Results Laboratory Results: 07/11/20 22:27 07/11/20 07/11/20 07/11/20 22:27 22:27 22:27 WBC 10.7 H RBC 4.15 L Hgb 11.4 L Hct 33.7 L MCV 81 MCH 27.4 MCHC 33.8 RDW 14.5 H Plt Count 249 Seg Neutrophils % 45.8 Sodium 139.5 Potassium 3.9 Chloride 107 Carbon Dioxide 23 Anion Gap 10 BUN 22 H Creatinine 1.12 Est GFR ( Amer) > 60 Glucose 113 H Calcium 8.8 Total Bilirubin 0.2 AST 19 Alkaline Phosphatase 47 Total Protein 5.9 L Albumin 3.5 Urine Color Urine Appearance Urine pH Ur Specific [place] Urine Protein Urine Glucose (UA) Urine Ketones Urine Blood Urine Nitrite Ur Leukocyte Esterase Urine WBC (Auto) Urine RBC (Auto) Blood Type O POSITIVE Antibody Screen NEGATIVE 07/12/20 00:11 WBC RBC Hgb Hct MCV MCH MCHC RDW Plt Count Seg Neutrophils % Sodium Potassium Chloride Carbon Dioxide Anion Gap BUN Creatinine Est GFR ( Amer) Glucose Calcium Total Bilirubin AST Alkaline Phosphatase Total Protein Albumin Urine Color YELLOW Urine Appearance CLEAR Urine pH 6.0 Ur Specific [place] 1.044 Urine Protein NEGATIVE Urine Glucose (UA) NEGATIVE Urine Ketones NEGATIVE Urine Blood NEGATIVE Urine Nitrite NEGATIVE Ur Leukocyte Esterase NEGATIVE Urine WBC (Auto) 1 Urine RBC (Auto) 1 Blood Type Antibody Screen Impressions: Abdomen/Pelvis CT 07/11/20 22:33 IMPRESSION: 1. No acute inflammatory or obstructive process identified. 2. Diverticulosis without evidence of acute diverticulitis. This exam was performed according to our departmental dose-optimization program, which includes automated exposure control, adjustment of the mA and/or kV according to patient size and/or use of iterative reconstruction technique. Assessment and Plan - Diagnosis (1) Lower GI bleed Is this a current diagnosis for this admission?: Yes (2) Acute blood loss anemia Is this a current diagnosis for this admission?: Yes (3) Diverticulosis Is this a current diagnosis for this admission?: Yes (4) Hyperlipidemia Qualifiers: Hyperlipidemia type: unspecified Qualified Code(s): E78.5 - Hyperlipidemia, unspecified Is this a current diagnosis for this admission?: Yes (5) Prediabetes Is this a current diagnosis for this admission?: Yes - Plan Summary Summary: Patient will be admitted to the medical floor he will receive routine supportive and symptomatic cares. Serial hemoglobins/hematocrits will be obtained. He will be continued on IV fluids utilizing lactated Ringer solution at 250 mL/h. He will use Ativan 1 mg IV every 4 hours as needed for anxiety or restlessness. He will use morphine sulfate 2 to 4 mg IV every 2 hours as needed for pain. A hemoglobin A1c, thyroid profile and a lipid profile will be obtained. He will receive a cardiac diet as tolerated. Before meals and at bedtime Accu-Cheks to be performed with sliding scale insulin for hyperglycemia and a hypoglycemic protocol in place. Additional laboratory and/or radiographic evaluations will be obtained as needed. - Time Time Spent with patient: 15-24 minutes Medications reviewed and adjusted accordingly: Yes Anticipated Discharge Disposition: Home, Self Care Anticipated Discharge Timeframe: within 72 hours - Inpatient Certification Based on my medical assessment, after consideration of the patient's comorbidities, presenting symptoms, or acuity I expect that the services needed warrant INPATIENT care.: Yes I certify that my determination is in accordance with my understanding of Medicare's requirements for reasonable and necessary INPATIENT services [42 CFR 412.3e].: Yes Medical Necessity: Need Close Monitoring Due to Risk of Patient Decompensation, Need For IV Fluids, Need for Pain Control, Risk of Complication if Not Cared For in Hospital, Risk of Diagnosis Which Will Require Inpatient Eval/Care/Monitoring
[2020-07-12] MEDS: RINGERS SOLUTION,LACTATED 1,000 ML IV PRN ×2 (05:06→09:20)
[2020-07-12 08:02] LABS: HEMATOCRIT 28.7 % (37.9-51.0); MEAN CORPUSCULAR HEMOGLOBIN 28.1 pg (27.0-33.4); MEAN CORPUSCULAR HGB CONC 34.7 g/dL (32.0-36.0); MEAN CORPUSCULAR VOLUME 81 fl (80-97); PLATELET COUNT 202 10^3/uL (150-450); RED BLOOD COUNT 3.54 10^6/uL (4.35-5.55); RED CELL DISTRIBUTION WIDTH 15.3 % (11.5-14.0); WHITE BLOOD COUNT 8.7 10^3/uL (4.0-10.5)
[2020-07-12] MEDS: FAMOTIDINE 20 MG TABLET PO SCH ×2 (09:25→21:28)
--- NOTE | 2020-07-12 11:56 | PDOC PROGRESS REPORT ---
Subjective Progress Note for:: 07/12/20 Subjective:: Patient resting comfortably. Still having dark stools. Tolerating IV fluids without difficulty. Reason For Visit: RECTAL BLEEDING,ACUTE BLOOD LOSS ANEMIA Physical Exam Vital Signs: Temp Pulse Resp BP Pulse Ox 98.0 F 85 12 118/73 100 07/12/20 11:00 07/12/20 11:00 07/12/20 11:00 07/12/20 11:00 07/12/20 03:45 Intake & Output 07/11/20 07/12/20 07/13/20 07:59 06:59 06:59 Intake Total 1000 Output Total Balance 1000 Weight General appearance: PRESENT: cooperative Respiratory exam: PRESENT: clear to auscultation dorita Cardiovascular exam: PRESENT: RRR, +S1, +S2 GI/Abdominal exam: PRESENT: normal bowel sounds, soft. ABSENT: tenderness Results Laboratory Results: 07/12/20 06:40 07/11/20 22:27 07/11/20 07/11/20 07/11/20 22:27 22:27 22:27 WBC 10.7 H RBC 4.15 L Hgb 11.4 L Hct 33.7 L MCV 81 MCH 27.4 MCHC 33.8 RDW 14.5 H Plt Count 249 Seg Neutrophils % 45.8 Sodium 139.5 Potassium 3.9 Chloride 107 Carbon Dioxide 23 Anion Gap 10 BUN 22 H Creatinine 1.12 Est GFR ( Amer) > 60 Glucose 113 H Calcium 8.8 Total Bilirubin 0.2 AST 19 Alkaline Phosphatase 47 Total Protein 5.9 L Albumin 3.5 Urine Color Urine Appearance Urine pH Ur Specific [place] Urine Protein Urine Glucose (UA) Urine Ketones Urine Blood Urine Nitrite Ur Leukocyte Esterase Urine WBC (Auto) Urine RBC (Auto) Blood Type O POSITIVE Antibody Screen NEGATIVE 07/12/20 07/12/20 00:11 06:40 WBC 8.7 RBC 3.54 L Hgb 10.0 L Hct 28.7 L MCV 81 MCH 28.1 MCHC 34.7 RDW 15.3 H Plt Count 202 Seg Neutrophils % Sodium Potassium Chloride Carbon Dioxide Anion Gap BUN Creatinine Est GFR ( Amer) Glucose Calcium Total Bilirubin AST Alkaline Phosphatase Total Protein Albumin Urine Color YELLOW Urine Appearance CLEAR Urine pH 6.0 Ur Specific [place] 1.044 Urine Protein NEGATIVE Urine Glucose (UA) NEGATIVE Urine Ketones NEGATIVE Urine Blood NEGATIVE Urine Nitrite NEGATIVE Ur Leukocyte Esterase NEGATIVE Urine WBC (Auto) 1 Urine RBC (Auto) 1 Blood Type Antibody Screen Impressions: Abdomen/Pelvis CT 07/11/20 22:33 IMPRESSION: 1. No acute inflammatory or obstructive process identified. 2. Diverticulosis without evidence of acute diverticulitis. This exam was performed according to our departmental dose-optimization program, which includes automated exposure control, adjustment of the mA and/or kV according to patient size and/or use of iterative reconstruction technique. Assessment and Plan - Diagnosis (1) Lower GI bleed Is this a current diagnosis for this admission?: Yes (2) Diverticulosis Is this a current diagnosis for this admission?: Yes (3) Acute blood loss anemia Is this a current diagnosis for this admission?: Yes (4) Obesity (BMI 30-39.9) Is this a current diagnosis for this admission?: Yes - Plan Summary Summary: Patient will be admitted to the medical floor he will receive routine supportive and symptomatic cares. Serial hemoglobins/hematocrits will be obtained. He will be continued on IV fluids utilizing lactated Ringer solution at 250 mL/h. He will use Ativan 1 mg IV every 4 hours as needed for anxiety or restlessness. He will use morphine sulfate 2 to 4 mg IV every 2 hours as needed for pain. A hemoglobin A1c, thyroid profile and a lipid profile will be obtained. He will receive a cardiac diet as tolerated. Before meals and at bedtime Accu-Cheks to be performed with sliding scale insulin for hyperglycemia and a hypoglycemic protocol in place. Additional laboratory and/or radiographic evaluations will be obtained as needed. 07/12/2020 Patient still having some bloody stool. Anemia-the patient was in the emergency department on July 02. At that time his hemoglobin was 16.6. Returning to the emergency department on July 11 his hemoglobin dropped to 11.4. After some IV fluids it was 10.0 earlier today. Will monitor closely. If it is a diverticular bleed endoscopic intervention is usually not helpful. If he continues to bleed we will obtain a bleeding scan. I have placed the patient on clear liquids. No bowel prep will be instituted at this time. Laboratory studies ordered for the morning. - Time Time Spent with patient: 15-24 minutes Medications reviewed and adjusted accordingly: Yes Anticipated Discharge Disposition: Home, Self Care Anticipated Discharge Timeframe: within 72 hours
[2020-07-12 12:23] LABS: HEMATOCRIT 28.2 % (37.9-51.0); HEMOGLOBIN 9.7 g/dL (13.5-17.0); MEAN CORPUSCULAR HEMOGLOBIN 27.5 pg (27.0-33.4); MEAN CORPUSCULAR HGB CONC 34.3 g/dL (32.0-36.0); MEAN CORPUSCULAR VOLUME 80 fl (80-97); PLATELET COUNT 211 10^3/uL (150-450); RED BLOOD COUNT 3.52 10^6/uL (4.35-5.55); RED CELL DISTRIBUTION WIDTH 14.9 % (11.5-14.0); WHITE BLOOD COUNT 8.5 10^3/uL (4.0-10.5)
--- NOTE | 2020-07-12 15:58 | PDOC CONSULTATION ---
Consultation Consult Date: 07/12/20 Attending physician:: MILADY CORRIGAN Provider Consulted: NALLELY SMITH Consult reason:: lower gi bleed History of Present Illness Admission Date/PCP: 07/12/20 03:01 GALINA WOLFE MD History of Present Illness: BARBY NEWMAN is a 34 year old male BARBY NEWMAN is a 34 year old male who presented emergency room with a 2-day history of rectal bleeding. He admits developing moderate constant crampy lower abdominal pain 10 days ago which has gradually moved from the right side of his lower abdomen to the left side and has been accompanied by at least 15 diarrhea stools with dark red blood over the last 2 days. His abdominal pain is associated with 2 syncopal episodes which occurred just prior to coming to the emergency room. He denies other associated or accompanying signs and symptoms. He admits prior similar symptoms with diverticulitis in the past. He has not identified any aggravating or ameliorating factors for his rectal bleeding. Upon EMS arrival he was found to have a systolic blood pressure of 65 and he received IV fluids in route to the hospital. In the emergency room he was still noted to have a soft blood pressure which has been running in the 90s to 100s systolic and EMS noted one episode of nonbloody emesis during transport. CT of the abdomen pelvis reveals no acute inflammatory changes or evidence of obstruction. Diverticular disease was noted. Patient was subsequently admitted to the hospital for further evaluation and treatment Bleeding and subsequently slowed however he still having a number of dark bloody bowel movements. Hemoglobins remained stable overnight. Past Medical History Cardiac Medical History: Reports: Hyperlipidema - no meds Denies: DVT, Hypertension, Pulmonary Embolism Pulmonary Medical History: Denies: Asthma, Chronic Obstructive Pulmonary Disease (COPD) EENT Medical History: Denies: Cataracts, Ears - Hearing aids Neurological Medical History: Denies: Multiple Sclerosis, Seizures Endocrine Medical History: Reports: Diabetes Mellitus Type 2 - "pre-diabetic" Denies: Diabetes Mellitus Type 1, Hyperthyroidism, Hypothyroidism Renal/ Medical History: Denies: Chronic Kidney Disease, Nephrolithiasis Malignancy Medical History: Reports: None GI Medical History: Reports: Diverticulitis Denies: Cirrhosis, Crohn's Disease, Gastroesophageal Reflux Disease, Hepatitis, Peptic Ulcer Disease, Ulcerative Colitis Musculoskeltal Medical History: Denies: Arthritis, Gout Skin Medical History: Denies: Eczema, Psoriasis Psychiatric Medical History: Denies: Alcohol Dependency, Depression, Substance Abuse, Tobacco Dependency Traumatic Medical History: Reports: None Hematology: Denies: Anemia, Bleeding Tendencies Infectious Medical History: Reports: None Past Surgical History Past Surgical History: Reports: Orthopedic Surgery - left hip screw Social History Lives with: Family, Spouse/Significant other Smoking Status: Never Smoker Electronic Cigarette use?: No Frequency of Alcohol Use: None Hx Recreational Drug Use: No Drugs: None Hx Prescription Drug Abuse: No - Advance Directive Resuscitation Status: Full Code Family History Family History: DM, Hypertension Parental Family History Reviewed: No Children Family History Reviewed: NA Sibling(s) Family History Reviewed.: NA Medication/Allergy Home Medications: No Home Medications 07/12/20 Allergies/Adverse Reactions: No Known Allergies Allergy (Verified 07/02/20 10:50) Review of Systems Constitutional: PRESENT: fatigue Eyes: ABSENT: as per HPI, visual disturbances, other Ears: ABSENT: as per HPI, hearing changes, other Nose, Mouth, and Throat: ABSENT: as per HPI, headache(s), mouth pain, sore throat, vertigo, other Breasts: ABSENT: as per HPI, other Cardiovascular: ABSENT: as per HPI, chest pain, dyspnea on exertion, edema, orthropnea, palpitations, other Respiratory: ABSENT: as per HPI, cough, dyspnea, hemoptysis, sputum, other Gastrointestinal: PRESENT: bloating Genitourinary: ABSENT: as per HPI, difficulty urinating, dysuria, hematuria, nocturia, other Musculoskeletal: ABSENT: as per HPI, back pain, deformity, joint swelling, muscle weakness, other Integumentary: ABSENT: as per HPI, diaphoresis, erythema, lesions, pruritus, rash, wounds, other Neurological: ABSENT: as per HPI, abnormal gait, abnormal movements, abnormal speech, confusion, convulsions, dizziness, focal weakness, frequent falls, lack of coordination, memory loss, numbness, paresthesias, restless legs, syncope, tingling, tremor(s), vertigo, weakness, other Psychiatric: ABSENT: as per HPI, anxiety, depression, hallucinations, homidical ideation, suicidal ideation, other Endocrine: ABSENT: as per HPI, cold intolerance, flushing, heat intolerance, menstrual abnormalities, polydipsia, polyphagia, polyuria, other Hematologic/Lymphatic: ABSENT: as per HPI, easy bleeding, easy bruising, lymphadenopathy, other Allergic/Immunologic: ABSENT: as per HPI, seasonal rhinorrhea, other Physical Exam Vital Signs: Temp Pulse Resp BP Pulse Ox 98.0 F 84 12 118/73 100 07/12/20 12:06 07/12/20 14:00 07/12/20 12:06 07/12/20 12:06 07/12/20 12:06 Intake & Output 07/11/20 07/12/20 07/13/20 07:59 06:59 06:59 Intake Total 2228 Output Total 450 Balance 1778 Weight General appearance: PRESENT: no acute distress Head exam: PRESENT: normocephalic Eye exam: PRESENT: EOMI Ear exam: PRESENT: normal external ear exam Mouth exam: PRESENT: moist Neck exam: PRESENT: full ROM Respiratory exam: PRESENT: clear to auscultation dorita Cardiovascular exam: PRESENT: RRR Pulses: PRESENT: normal radial pulses, normal femoral pulses GI/Abdominal exam: PRESENT: soft Rectal exam: PRESENT: deferred Extremities exam: PRESENT: full ROM Musculoskeletal exam: PRESENT: full ROM Neurological exam: PRESENT: alert, awake, oriented to place Psychiatric exam: PRESENT: appropriate affect Skin exam: PRESENT: dry Results Laboratory Results: 07/12/20 12:05 07/11/20 22:27 07/11/20 07/11/20 07/11/20 22:27 22:27 22:27 WBC 10.7 H RBC 4.15 L Hgb 11.4 L Hct 33.7 L MCV 81 MCH 27.4 MCHC 33.8 RDW 14.5 H Plt Count 249 Seg Neutrophils % 45.8 Sodium 139.5 Potassium 3.9 Chloride 107 Carbon Dioxide 23 Anion Gap 10 BUN 22 H Creatinine 1.12 Est GFR ( Amer) > 60 Glucose 113 H Calcium 8.8 Total Bilirubin 0.2 AST 19 Alkaline Phosphatase 47 Total Protein 5.9 L Albumin 3.5 Urine Color Urine Appearance Urine pH Ur Specific [place] Urine Protein Urine Glucose (UA) Urine Ketones Urine Blood Urine Nitrite Ur Leukocyte Esterase Urine WBC (Auto) Urine RBC (Auto) Blood Type O POSITIVE Antibody Screen NEGATIVE 07/12/20 07/12/20 07/12/20 00:11 06:40 12:05 WBC 8.7 8.5 RBC 3.54 L 3.52 L Hgb 10.0 L 9.7 L Hct 28.7 L 28.2 L MCV 81 80 MCH 28.1 27.5 MCHC 34.7 34.3 RDW 15.3 H 14.9 H Plt Count 202 211 Seg Neutrophils % Sodium Potassium Chloride Carbon Dioxide Anion Gap BUN Creatinine Est GFR ( Amer) Glucose Calcium Total Bilirubin AST Alkaline Phosphatase Total Protein Albumin Urine Color YELLOW Urine Appearance CLEAR Urine pH 6.0 Ur Specific [place] 1.044 Urine Protein NEGATIVE Urine Glucose (UA) NEGATIVE Urine Ketones NEGATIVE Urine Blood NEGATIVE Urine Nitrite NEGATIVE Ur Leukocyte Esterase NEGATIVE Urine WBC (Auto) 1 Urine RBC (Auto) 1 Blood Type Antibody Screen Impressions: Abdomen/Pelvis CT 07/11/20 22:33 IMPRESSION: 1. No acute inflammatory or obstructive process identified. 2. Diverticulosis without evidence of acute diverticulitis. This exam was performed according to our departmental dose-optimization program, which includes automated exposure control, adjustment of the mA and/or kV according to patient size and/or use of iterative reconstruction technique. Assessment & Plan - Plan Summary Plan Summary: Impression lower GI bleeding. This is the second or third episode of lower GI bleeding for this patient. He also has had a history of diverticulitis which has been treated medically. He is known to have a number of left colonic diverticula on previous colonoscopies. His last colonoscopy was 2 years ago which was just notable for diverticulosis no masses or polyps were seen. Patient now returns with recurrent GI bleeding. It seems to have slowed. His last hemoglobin this morning was 10 and 9.76 hours later. Although the patient still says he is has passing dark bloody bowel movements. Recommendations repeat colonoscopy at this point would not show us anything such as a cancer our bleeding polyp that could be treated endoscopically since his last colonoscopy was approximately 2 years ago. At this point feel that the bleeding has stopped or significantly slowed. If the bleeding continues a tagged red cell scan could be doneto isolate the side of the colonic bleeding. And then possible surgery if necessary however I doubt that we will reassess point. I explained to the patient the best course of treatment would be to allow this bleeding episode to stop spontaneously transfuse as necessary and then seek out surgical consultation for elective procedure that could be done laparoscopically. Patient is agreement with this I spoke to Dr. Dr. Corrigan Surgery will continue to follow.
[2020-07-12 17:34] LABS: HEMATOCRIT 29.9 % (37.9-51.0); HEMOGLOBIN 10.4 g/dL (13.5-17.0); MEAN CORPUSCULAR HEMOGLOBIN 27.9 pg (27.0-33.4); MEAN CORPUSCULAR HGB CONC 34.7 g/dL (32.0-36.0); MEAN CORPUSCULAR VOLUME 80 fl (80-97); PLATELET COUNT 234 10^3/uL (150-450); RED BLOOD COUNT 3.72 10^6/uL (4.35-5.55); RED CELL DISTRIBUTION WIDTH 15.3 % (11.5-14.0); WHITE BLOOD COUNT 10.1 10^3/uL (4.0-10.5)
[2020-07-13 00:35] LABS: HEMATOCRIT 26.8 % (37.9-51.0); HEMOGLOBIN 9.2 g/dL (13.5-17.0); MEAN CORPUSCULAR HEMOGLOBIN 27.4 pg (27.0-33.4); MEAN CORPUSCULAR HGB CONC 34.3 g/dL (32.0-36.0); MEAN CORPUSCULAR VOLUME 80 fl (80-97); PLATELET COUNT 205 10^3/uL (150-450); RED BLOOD COUNT 3.35 10^6/uL (4.35-5.55)
[2020-07-13 06:22] LABS: HEMATOCRIT 27.4 % (37.9-51.0); HEMOGLOBIN 9.3 g/dL (13.5-17.0); MEAN CORPUSCULAR HEMOGLOBIN 27.5 pg (27.0-33.4); MEAN CORPUSCULAR VOLUME 81 fl (80-97); PLATELET COUNT 193 10^3/uL (150-450); RED BLOOD COUNT 3.39 10^6/uL (4.35-5.55); RED CELL DISTRIBUTION WIDTH 14.7 % (11.5-14.0); WHITE BLOOD COUNT 7.1 10^3/uL (4.0-10.5)
[2020-07-13 06:45] LABS: ALBUMIN 3.1 g/dL (3.5-5.0); ALKALINE PHOSPHATASE 39 U/L (38-126); ANION GAP 10 (5-19); ASPARTATE AMINO TRANSFERASE 17 U/L (17-59); BILIRUBIN,DIRECT 0.1 mg/dL (0.0-0.4); BILIRUBIN,TOTAL 0.4 mg/dL (0.2-1.3); BLOOD UREA NITROGEN 10 mg/dL (7-20); CALCIUM 8.6 mg/dL (8.4-10.2); CARBON DIOXIDE 25 mmol/L (22-30); CHLORIDE 102 mmol/L (98-107); CHOLESTEROL 144.61 mg/dL (0-200); GLUCOSE 89 mg/dL (75-110); POTASSIUM 4.1 mmol/L (3.6-5.0); TOTAL PROTEIN 5.2 g/dL (6.3-8.2); TRIGLYCERIDES 167 mg/dL (<150); VLDL CHOLESTEROL 33.4 mg/dL (10-31)
[2020-07-13 06:56] LABS: DIRECT LDL 93 mg/dL (<100)
[2020-07-13 06:57] LABS: FREE T3 4.1 pg/mL (2.77-5.27); FREE T4 (FREE THYROXINE) 1.05 ng/dL (0.78-2.19)
[2020-07-13 07:11] LABS: THYROID STIMULATING HORMONE 1.13 uIU/mL (0.47-4.68)
[2020-07-13] MEDS: FAMOTIDINE 20 MG TABLET PO SCH (10:54)
--- NOTE | 2020-07-13 12:01 | PDOC DISCHARGE SUMMARY ---
Impression - Admit/DC Date/PCP Admission Date/Primary Care Provider: 07/12/20 03:01 GALINA WOLFE MD Discharge Date: 07/13/20 - Discharge Diagnosis (1) Lower GI bleed Is this a current diagnosis for this admission?: Yes (2) Diverticulosis Is this a current diagnosis for this admission?: Yes (3) Acute blood loss anemia Is this a current diagnosis for this admission?: Yes (4) Obesity (BMI 30-39.9) Is this a current diagnosis for this admission?: Yes - Assessment Summary: Patient will be admitted to the medical floor he will receive routine supportive and symptomatic cares. Serial hemoglobins/hematocrits will be obtained. He will be continued on IV fluids utilizing lactated Ringer solution at 250 mL/h. He will use Ativan 1 mg IV every 4 hours as needed for anxiety or restlessness. He will use morphine sulfate 2 to 4 mg IV every 2 hours as needed for pain. A hemoglobin A1c, thyroid profile and a lipid profile will be obtained. He will receive a cardiac diet as tolerated. Before meals and at bedtime Accu-Cheks to be performed with sliding scale insulin for hyperglycemia and a hypoglycemic protocol in place. Additional laboratory and/or radiographic evaluations will be obtained as needed. 07/12/2020 Patient still having some bloody stool. Anemia-the patient was in the emergency department on July 02. At that time his hemoglobin was 16.6. Returning to the emergency department on July 11 his hemoglobin dropped to 11.4. After some IV fluids it was 10.0 earlier today. Will monitor closely. If it is a diverticular bleed endoscopic intervention is usually not helpful. If he continues to bleed we will obtain a bleeding scan. I have placed the patient on clear liquids. No bowel prep will be instituted at this time. Laboratory studies ordered for the morning. - Additional Information Resuscitation Status: Full Code Discharge Diet: Cardiac, Diabetic, Other (Comments) - Soft foods and advance slowly Discharge Activity: Activity As Tolerated Referrals: NALLELY SMITH MD [ACTIVE STAFF] - 07/17/20 9:00 am () URI GUZMAN MD [NO LOCAL MD] - 07/15/20 9:30 am () Home Medications: No Home Medications 07/12/20 History of Present Illiness History of Present Illness: BARBY NEWMAN is a 34 year old male who presented emergency room with a 2- day history of rectal bleeding. He admits developing moderate constant crampy lower abdominal pain 10 days ago which has gradually moved from the right side of his lower abdomen to the left side and has been accompanied by at least 15 diarrhea stools with dark red blood over the last 2 days. His abdominal pain is associated with 2 syncopal episodes which occurred just prior to coming to the emergency room. He denies other associated or accompanying signs and symptoms. He admits prior similar symptoms with diverticulitis in the past. He has not identified any aggravating or ameliorating factors for his rectal bleeding. Upon EMS arrival he was found to have a systolic blood pressure of 65 and he received IV fluids in route to the hospital. In the emergency room he was still noted to have a soft blood pressure which has been running in the 90s to 100s systolic and EMS noted one episode of nonbloody emesis during transport. CT of the abdomen pelvis reveals no acute inflammatory changes or evidence of obstruction. Diverticular disease was noted. Patient was subsequently admitted to the hospital for further evaluation and treatment. Hospital Course Hospital Course: Uncomplicated hospital course. The patient was seen by surgery. Unfortunately with diverticular bleeds treatment options are embolization or resection. Because of the patient's extensive amount of diverticula he may end up requiring some level of colectomy. Hemoglobin stabilized. Patient will discharge and follow-up with surgery to discuss treatment options in the future. Physical Exam Vital Signs: Temp Pulse Resp BP Pulse Ox 98.2 F 78 16 119/55 L 100 07/13/20 08:01 07/13/20 08:01 07/13/20 08:01 07/13/20 08:01 07/13/20 08:01 Intake & Output 07/12/20 07/13/20 07/14/20 06:59 06:59 06:59 Intake Total 3680 Output Total 2150 Balance 1530 Weight 114.3 kg General appearance: PRESENT: no acute distress, cooperative, well-developed Respiratory exam: PRESENT: clear to auscultation dorita, symmetrical, unlabored. ABSENT: rales, rhonchi, tachypnea, wheezes Cardiovascular exam: PRESENT: RRR, +S1, +S2. ABSENT: bradycardia, diastolic murmur, irregular rhythm, systolic murmur, tachycardia GI/Abdominal exam: PRESENT: normal bowel sounds, soft. ABSENT: tenderness Rectal exam: PRESENT: deferred Gentrourinary exam: ABSENT: indwelling catheter Neurological exam: PRESENT: alert, awake, oriented to person, oriented to place, oriented to time, oriented to situation, CN II-XII grossly intact Psychiatric exam: PRESENT: appropriate affect, normal mood. ABSENT: agitated, anxious Focused psych exam: ABSENT: delusional, paranoid, restlessness Results Laboratory Results: WBC 7.1 10^3/uL (4.0-10.5) 07/13/20 05:54 RBC 3.39 10^6/uL (4.35-5.55) L 07/13/20 05:54 Hgb 9.3 g/dL (13.5-17.0) L 07/13/20 05:54 Hct 27.4 % (37.9-51.0) L 07/13/20 05:54 MCV 81 fl (80-97) 07/13/20 05:54 MCH 27.5 pg (27.0-33.4) 07/13/20 05:54 MCHC 34.0 g/dL (32.0-36.0) 07/13/20 05:54 RDW 14.7 % (11.5-14.0) H 07/13/20 05:54 Plt Count 193 10^3/uL (150-450) 07/13/20 05:54 Lymph % (Auto) 44.4 % (13-45) 07/11/20 22:27 [place] % (Auto) 7.9 % (3-13) 07/11/20 22:27 Eos % (Auto) 1.7 % (0-6) 07/11/20 22:27 Baso % (Auto) 0.2 % (0-2) 07/11/20 22:27 Absolute Neuts (auto) 4.9 10^3/uL (1.7-8.2) 07/11/20 22:27 Absolute Lymphs (auto) 4.8 10^3/uL (0.5-4.7) H 07/11/20 22:27 Absolute Monos (auto) 0.8 10^3/uL (0.1-1.4) 07/11/20 22:27 Absolute Eos (auto) 0.2 10^3/uL (0.0-0.6) 07/11/20 22:27 Absolute Basos (auto) 0.0 10^3/uL (0.0-0.2) 07/11/20 22:27 Seg Neutrophils % 45.8 % (42-78) 07/11/20 22:27 PT 13.3 SEC (11.4-15.4) 07/11/20 22:27 INR 0.99 07/11/20 22:27 APTT 24.0 SEC (23.5-35.8) 07/11/20 22:27 Sodium 136.7 mmol/L (137-145) L 07/13/20 05:54 Potassium 4.1 mmol/L (3.6-5.0) 07/13/20 05:54 Chloride 102 mmol/L (98-107) 07/13/20 05:54 Carbon Dioxide 25 mmol/L (22-30) 07/13/20 05:54 Anion Gap 10 (5-19) 07/13/20 05:54 BUN 10 mg/dL (7-20) 07/13/20 05:54 Creatinine 0.81 mg/dL (0.52-1.25) 07/13/20 05:54 Est GFR ( Amer) > 60 (>60) 07/13/20 05:54 Est GFR (MDRD) Non-Af > 60 (>60) 07/13/20 05:54 Glucose 89 mg/dL (75-110) 07/13/20 05:54 POC Glucose 152 mg/dL (70-110) H 07/13/20 10:27 Hemoglobin A1c % 4.8 % (4.7-6.0) 07/13/20 05:54 Calcium 8.6 mg/dL (8.4-10.2) 07/13/20 05:54 Magnesium 1.8 mg/dL (1.6-2.3) 07/13/20 05:54 Total Bilirubin 0.4 mg/dL (0.2-1.3) 07/13/20 05:54 Direct Bilirubin 0.1 mg/dL (0.0-0.4) 07/13/20 05:54 Neonat Total Bilirubin Not Reportable 07/13/20 05:54 Neonat Direct Bilirubin Not Reportable 07/13/20 05:54 Neonat Indirect Bili Not Reportable 07/13/20 05:54 AST 17 U/L (17-59) 07/13/20 05:54 ALT 19 U/L (<50) 07/13/20 05:54 Alkaline Phosphatase 39 U/L (38-126) 07/13/20 05:54 Total Protein 5.2 g/dL (6.3-8.2) L 07/13/20 05:54 Albumin 3.1 g/dL (3.5-5.0) L 07/13/20 05:54 Triglycerides 167 mg/dL (<150) H 07/13/20 05:54 Cholesterol 144.61 mg/dL (0-200) 07/13/20 05:54 LDL Cholesterol Direct 93 mg/dL (<100) 07/13/20 05:54 VLDL Cholesterol 33.4 mg/dL (10-31) H 07/13/20 05:54 HDL Cholesterol 29 mg/dL (>40) L 07/13/20 05:54 TSH 1.13 uIU/mL (0.47-4.68) 07/13/20 05:54 Free T4 1.05 ng/dL (0.78-2.19) 07/13/20 05:54 Free T3 pg/mL 4.10 pg/mL (2.77-5.27) 07/13/20 05:54 Urine Color YELLOW 07/12/20 00:11 Urine Appearance CLEAR 07/12/20 00:11 Urine pH 6.0 (5.0-9.0) 07/12/20 00:11 Ur Specific [place] 1.044 07/12/20 00:11 Urine Protein NEGATIVE mg/dL (NEGATIVE) 07/12/20 00:11 Urine Glucose (UA) NEGATIVE mg/dL (NEGATIVE) 07/12/20 00:11 Urine Ketones NEGATIVE mg/dL (NEGATIVE) 07/12/20 00:11 Urine Blood NEGATIVE (NEGATIVE) 07/12/20 00:11 Urine Nitrite NEGATIVE (NEGATIVE) 07/12/20 00:11 Urine Bilirubin NEGATIVE (NEGATIVE) 07/12/20 00:11 Urine Urobilinogen NEGATIVE mg/dL (<2.0) 07/12/20 00:11 Ur Leukocyte Esterase NEGATIVE (NEGATIVE) 07/12/20 00:11 Urine WBC (Auto) 1 /HPF 07/12/20 00:11 Urine RBC (Auto) 1 /HPF 07/12/20 00:11 Urine Bacteria (Auto) TRACE /HPF 07/12/20 00:11 Urine Mucus (Auto) RARE /LPF 07/12/20 00:11 Urine Ascorbic Acid NEGATIVE (NEGATIVE) 07/12/20 00:11 POC Stool Occult Blood POSITIVE (NEGATIVE) 07/11/20 23:26 Blood Type O POSITIVE 07/11/20 22:27 Antibody Screen NEGATIVE 07/11/20 22:27 Impressions: Abdomen/Pelvis CT 07/11/20 22:33 IMPRESSION: 1. No acute inflammatory or obstructive process identified. 2. Diverticulosis without evidence of acute diverticulitis. This exam was performed according to our departmental dose-optimization program, which includes automated exposure control, adjustment of the mA and/or kV according to patient size and/or use of iterative reconstruction technique. Plan Health Concerns: Extensive diverticula in a 34-year-old. Plan of Treatment: Monitor for recurrent bleeds. At some point will likely need colectomy Goals: Monitor for now and intervene surgically when necessary Time Spent: Greater than 30 Minutes Stroke Is this a Stroke Patient?: No Acute Heart Failure Is this a Heart Failure Patient?: No
[2020-07-13 13:46] VITALS: BP 118/73
--- NOTE | 2020-07-13 18:18 | PDOC PROGRESS REPORT ---
Subjective Progress Note for:: 07/13/20 Subjective:: 4-year-old male with lower GI bleeding. His bleeding seems to be resolved. His hemoglobin is stable. He has a known history of diverticulosis. He has had a colonoscopy in the past, which did not find any polyps. He denies abdominal pain, nausea, vomiting, hematochezia, hematemesis, orthostasis, dizziness, fatigue, blurry vision, headache. Reason For Visit: RECTAL BLEEDING,ACUTE BLOOD LOSS ANEMIA Physical Exam Vital Signs: Temp Pulse Resp BP Pulse Ox 98.1 F 79 16 118/73 99 07/13/20 13:44 07/13/20 13:44 07/13/20 13:44 07/13/20 13:44 07/13/20 13:44 Intake & Output 07/12/20 07/13/20 07/14/20 06:59 06:59 06:59 Intake Total 3680 Output Total 2150 1100 Balance 1530 -1100 Weight 114.3 kg General appearance: PRESENT: no acute distress, cooperative Head exam: PRESENT: atraumatic, normocephalic Eye exam: PRESENT: EOMI, PERRLA. ABSENT: scleral icterus Mouth exam: PRESENT: moist, neck supple Neck exam: ABSENT: meningismus, tenderness, thyromegaly, tracheal deviation Respiratory exam: PRESENT: unlabored. ABSENT: tachypnea, wheezes Cardiovascular exam: ABSENT: tachycardia Vascular exam: PRESENT: normal capillary refill GI/Abdominal exam: PRESENT: soft. ABSENT: distended, tenderness Rectal exam: PRESENT: deferred Extremities exam: ABSENT: clubbing Musculoskeletal exam: ABSENT: deformity Neurological exam: PRESENT: alert, awake, oriented to person, oriented to place, oriented to time, oriented to situation Psychiatric exam: ABSENT: agitated, anxious Focused psych exam: ABSENT: delusional Skin exam: ABSENT: cyanosis, erythema, jaundice Results Laboratory Results: 07/13/20 05:54 07/13/20 05:54 07/13/20 07/13/20 07/13/20 00:23 05:54 05:54 WBC 8.0 7.1 RBC 3.35 L 3.39 L Hgb 9.2 L 9.3 L Hct 26.8 L 27.4 L MCV 80 81 MCH 27.4 27.5 MCHC 34.3 34.0 RDW 15.0 H 14.7 H Plt Count 205 193 Sodium 136.7 L Potassium 4.1 Chloride 102 Carbon Dioxide 25 Anion Gap 10 BUN 10 Creatinine 0.81 Est GFR ( Amer) > 60 Glucose 89 Calcium 8.6 Magnesium 1.8 Total Bilirubin 0.4 AST 17 Alkaline Phosphatase 39 Total Protein 5.2 L Albumin 3.1 L Triglycerides 167 H Cholesterol 144.61 LDL Cholesterol Direct 93 VLDL Cholesterol 33.4 H HDL Cholesterol 29 L TSH Free T4 Free T3 pg/mL 07/13/20 05:54 WBC RBC Hgb Hct MCV MCH MCHC RDW Plt Count Sodium Potassium Chloride Carbon Dioxide Anion Gap BUN Creatinine Est GFR ( Amer) Glucose Calcium Magnesium Total Bilirubin AST Alkaline Phosphatase Total Protein Albumin Triglycerides Cholesterol LDL Cholesterol Direct VLDL Cholesterol HDL Cholesterol TSH 1.13 Free T4 1.05 Free T3 pg/mL 4.10 Impressions: Abdomen/Pelvis CT 07/11/20 22:33 IMPRESSION: 1. No acute inflammatory or obstructive process identified. 2. Diverticulosis without evidence of acute diverticulitis. This exam was performed according to our departmental dose-optimization program, which includes automated exposure control, adjustment of the mA and/or kV according to patient size and/or use of iterative reconstruction technique. Assessment & Plan - Diagnosis (1) Diverticulosis Is this a current diagnosis for this admission?: Yes (2) Lower GI bleed Is this a current diagnosis for this admission?: Yes - Time Anticipated Discharge Disposition: Home, Self Care Anticipated Discharge Timeframe: within 24 hours - Plan Summary Plan Summary: 34-year-old male with a history of diverticulosis, and lower GI bleeding. His bleeding appears to have stopped. In light of his history, I do not believe colonoscopy would provide him any benefit. I have discussed fiber supplementation, as well as an elective colon resection if his bleeding/difficulties continue. The patient will consider this as an option in the future. I do not anticipate any surgery will be necessary for him on this hospital admission. Surgery will sign off. Please renotify with any questions or concerns.
== END 2020-07-13 14:07 | disposition home or self-care (01) | DRG 378 ==
LOC: ER 22:07 → EH 07-12 03:01 → 4W 07-12 03:45
PROVIDERS: ADMIT Emergency Medicine; ATTEND Hospitalist
DX: K57.31 Diverticulosis of large intestine without perforation or abscess with bleeding (principal); D62 Acute posthemorrhagic anemia; R73.03 Prediabetes; E66.9 Obesity, unspecified
CPT/HCPCS: 36415; 74177; 80053; 80061; 81001; 82270; 82962; 83036; 83735; 84439; 84443; 84481; 85025; 85027; 85610; 85730; 86850; 86900; 86901; 87086; 96360; 96361; 99285; J3490; J7030; J7120